=== PATIENT | male | born 1985 | race Caucasian/White ===

== ENCOUNTER 2020-06-18 21:35 | Emergency (ER) | payer SELFPAY ==
[2020-06-18 21:40] VITALS: BP 127/69; PULSE 80; RESP 14; TEMP 36.6; O2SAT 97
--- NOTE | 2020-06-18 22:02 | W.ED.GENAD ---
Discharge Plan Disposition Patient Disposition: OTHER Condition: Stable Discharge Details Clinical Impression: Alcohol intoxication, Depression Primary Care Provider: None,None ED Provider: Owen Milian Discharge Instructions Instructions: Depression (ED), Alcohol Intoxication (ED) Additional Instructions: You were being discharged in temporary protective custody until sober. Please arrange follow-up with your primary care physician and [facility] services. Return to the ER for any worsening or new concerning symptoms. Medical Decision Making 34-year-old male here in law enforcement custody at the request of law instructor for medical screening exam with plan for maintenance of temporary custody until sober. Low enforcement breathalyzer at 0.139. Patient medically screened and no acute medical condition identified other than intoxication. I did call and speak with the crisis screener at [facility] -they had evaluated the patient while in law enforcement custody and recommended protective custody until sober. I spoke with the patient to see if had any friends or relatives he could care for him and ensure his safety tonight and unfortunately he does not. Plan will be for discharge and to maintain protective custody until he is sober. I will ask care management to help arrange outpatient follow-up with primary care physician for establish care and also with follow-up with [facility] with services for his depression. Usual customary discharge instructions were reviewed with patient. He was encouraged to return immediately for any worsening or new concerning symptoms or needed a safe place to be. HPI General Mode of arrival: EMS. Date/Time Provider Initiated Documentation: 06/18/20 21:42. Limitations to Documentation: no limitations. Information obtained by: patient and police. HPI Narrative: 34-year-old male presents with law enforcement with intoxication. Patient notes he has been feeling depressed recently and decided to take a few shots of whiskey and go to bed tonight. Neighbors/friends were concerned that they could not reach him on phone and contacted law enforcement. He notes that he did have suicidal ideation earlier today with thoughts of slitting his wrist. He notes that instead he decided to have a few drinks. He denies suicidality at this time. He specifically notes that he could never kill himself because he has a fear of dying alone and that he expects he will when he is 88 years old. When I asked him what what would have happened if lawenforcement did not arrive tonight and he stated that he would have slept for the night got up in the morning and gone to work. He is quite frustrated with his current situation and would prefer to be home in bed. Patient denies ingestions. Patient does have chronic unchanged depression that is not currently being treated. Related Data Allergies Allergy/AdvReac Type Severity Reaction Status Date / Time Penicillins Allergy Severe Anaphylaxis Unverified 06/18/20 21:50 General Stated Complaint: PsychEval PETE: 2 Review of Systems All systems reviewed & are unremarkable except as noted in HPI and below Psychiatric Psychiatric: Reports as per HPI and Denies homicidal ideation PFSH Social History Smoking/Tobacco Use Status: Current every day Tobacco Type: cigarettes Smoking risk assessment performed?: Yes Alcohol Intake: current Alcohol Intake frequency: 3 or more drinks per day Alcohol type: hard liquor Substance use type: marijuana Do you feel safe at home: Yes Exam Const General: cooperative and no acute distress Orientation: alert and awake Other: Sounds like EtOH HENMT Mouth: moist mucous membranes Eyes Conjunctivae: normal conjunctivae Sclera: normal sclerae Neck Neck: supple Resp Auscultation: clear to auscultation bilaterally, no rales, no rhonchi and no wheezes Cardio Rate: regular rate and not tachycardic Rhythm: regular rhythm GI Palpation: soft, not firm, no guarding, no masses, not rigid and nontender Skin General skin exam: no rashes or lesions noted Neuro General: patient alert, patient awake, patient oriented x3 and tone normal Extrem General: no edema Psych Mental Status: mental status grossly normal Speech and Movement: speech and movement normal Affect: irritable affect Attitude: cooperative Thought Process: normal Thought Content: normal Insight: insight good Judgment: judgment good Course Vital Signs Vital signs: Vital Signs Temperature 36.6 C 06/18/20 21:40 Pulse 80 06/18/20 21:40 Respiratory Rate 14 06/18/20 21:40 Blood Pressure 127/69 06/18/20 21:40 Pulse Oximetry 97 06/18/20 21:40 Temperature 36.6 C 06/18/20 21:40 Temperature Source Skin 06/18/20 21:40 Pulse 80 06/18/20 21:40 Respiratory Rate 14 06/18/20 21:40 Blood Pressure 127/69 06/18/20 21:40 Blood Pressure Position Sitting 06/18/20 21:40 Pulse Oximetry 97 06/18/20 21:40 Oxygen Delivery Method Room Air 06/18/20 21:40 Oxygen Flow Rate 0 06/18/20 21:40
--- NOTE | 2020-06-19 09:10 | NUR.NOTE ---
Referral to Care Management to get pt established with pcp and [facility]. Long standing depression.Nursing Note:
== END 2020-06-18 22:42 | disposition other institution (70) ==
PROVIDERS: Emergency Provider Student in an Organized Health Care Education/Training Program
DX: F32.9 Major depressive disorder, single episode, unspecified (principal); F10.120 Alcohol abuse with intoxication, uncomplicated
CPT/HCPCS: 99285; 99283